=== PATIENT | female | born 1965 | race Native Hawaiian/Other Pacific Islander ===

== ENCOUNTER 2017-10-24 22:29 | Observation (INO) | payer OTHER ==
[2017-10-24] MEDS ORDERED: NITROGLYCERIN OINT 1 INCH/GM PACKET TOPICAL STA (22:50)
[2017-10-24] MEDS ORDERED: ASPIRIN 81 MG PO STA (22:50)
[2017-10-24 23:02] LABS: Basophils # (A) 0.1 k/uL (0-0.2); Basophils % (A) 1 %; Eosinophils # (A) 0.3 k/uL (0-0.7); Eosinophils % (A) 4 %; HCT 43.1 % (34.0-46.0); HGB 13.9 gm/dL (11.4-16.0); Lymphocytes # (A) 3.1 k/uL (1.0-4.8); Lymphocytes % (A) 39 %; MCH 27.9 pg (25.0-35.0); MCHC 32.2 g/dL (31.0-37.0); MCV 86.7 fL (80.0-100.0); Monocytes # (A) 0.3 k/uL (0-1.0); Monocytes % (A) 4 %; Neutrophils # (A) 4.1 k/uL (1.3-7.7); Neutrophils % (A) 51 %; Platelet Count 273 k/uL (150-450); RBC 4.97 m/uL (3.80-5.40); RDW 13.6 % (11.5-15.5)
--- NOTE | 2017-10-24 23:11 | XR ---
EXAMINATION TYPE: XR chest 2V DATE OF EXAM: 10/24/2017 COMPARISON: NONE HISTORY: Chest pain TECHNIQUE: Frontal and lateral views of the chest are obtained. FINDINGS: There is no heart failure nor confluent pneumonic infiltrate. There is suboptimal inspirat ion. Heart is probably enlarged. There are chest leads. Bony thorax is intact. IMPRESSION: Poor inspiration. No pulmonary consolidation or heart failure.
[2017-10-24 23:13] LABS: D-Dimer 0.45 mg/L FEU (<0.60)
[2017-10-24 23:15] LABS: ALT 79 U/L (9-52); AST 53 U/L (14-36); Albumin 3.8 g/dL (3.5-5.0); Alkaline Phosphatase 127 U/L (38-126); Anion Gap 10 mmol/L; Blood Urea Nitrogen 18 mg/dL (7-17); Calcium 9.3 mg/dL (8.4-10.2); Carbon Dioxide 25 mmol/L (22-30); Chloride 106 mmol/L (98-107); Glucose 209 mg/dL (74-99); Magnesium 1.8 mg/dL (1.6-2.3); Sodium 141 mmol/L (137-145); Total Bilirubin 0.3 mg/dL (0.2-1.3); Total Protein 7.1 g/dL (6.3-8.2)
[2017-10-24 23:17] LABS: INR 1.1 (<1.2); Prothrombin Time 10.3 sec (9.0-12.0)
--- NOTE | 2017-10-24 23:27 | ED ---
Chest Pain HPI - General Chief Complaint: Chest Pain Stated Complaint: Chest Pain Time Seen by Provider: 10/24/17 22:31 Source: patient, EMS Mode of arrival: EMS Limitations: no limitations - History of Present Illness Initial Comments: 17 years old female presented with a chest pain ongoing now for the last 3 hours also complaining about the pain get worse with the deep breaths denies any trauma denies any history of heart disease he does have a history of hypertension and diabetes and she is also quite short winded. His any fever or chills denies any purulent sputum production. Denies any abdominal pain no frequency urgency dysuria no symptoms of TIA or CVA - Related Data Home Medications Medication Instructions Recorded Confirmed Sertraline [Zoloft] 25 mg PO HS 10/24/17 10/24/17 metFORMIN HCL [Glucophage] 850 mg PO BID 10/24/17 10/24/17 Allergies Allergy/AdvReac Type Severity Reaction Status Date / Time codeine Allergy Swelling Verified 10/24/17 23:23 Penicillins Allergy Swelling Verified 10/24/17 23:23 Review of Systems ROS Statement: Those systems with pertinent positive or pertinent negative responses have been documented in the HPI. ROS Other: All systems not noted in ROS Statement are negative. EKG Findings - EKG Comments: EKG Findings:: EKG is normal sinus rhythm ventricular rate is 74 GA interval is 166 QRS duration is 4 QT/QTC 396/439 and 50 mL EKG does not reveal any ST elevation or ST depression Past Medical History Past Medical History: Diabetes Mellitus, Hypertension History of Any Multi-Drug Resistant Organisms: None Reported Additional Past Surgical History / Comment(s): left breast lumpectomy, Past Psychological History: No Psychological Hx Reported Smoking Status: Never smoker Past Alcohol Use History: None Reported Past Drug Use History: None Reported General Exam - General Exam Comments Initial Comments: General: The patient is awake and alert, in no distress, and does not appear acutely ill. Skin: Skin is warm and dry and no rashes or lesions are noted. Eye: Pupils are equal, round and reactive to light, extra-ocular movements are intact; there is normal conjunctiva bilaterally. Ears, nose, mouth and throat: There are moist mucous membranes and no oral lesions. Neck: The neck is supple, there is no tenderness or JVD. Cardiovascular: There is a regular rate and rhythm. No murmur, rub or gallop is appreciated. Respiratory: To auscultation bilateral, no wheezing no rhonchi no distress respiratory ramirez noticed Gastrointestinal: Soft, non-distended, non-tender abdomen without masses or organomegaly noted. There is no rebound or guarding present. Bowel sounds are unremarkable. Back: There is no tenderness to palpation in the midline. There is no obvious deformity. Musculoskeletal: Normal ROM, no tenderness, There is no pedal edema. There is no calf tenderness or swelling. No cords were appreciated. Neurological: CN II-XII intact, Cranial nerves III through XII are intact. There are no obvious motor or sensory deficits. Coordination appears grossly intact. Speech is normal. Psychiatric: Cooperative, appropriate mood & affect, normal judgment. Limitations: no limitations Course Vital Signs 10/24/17 22:31 Temperature 98.3 F Pulse Rate 78 Respiratory 20 Rate Blood Pressure 138/63 O2 Sat by Pulse 97 Oximetry Patient is reassessed at 2350, d-dimer is negative CBC, compressive metabolic panel are unremarkable except ALT 79 AST 53 and alk phosphatase is 127 chest x- ray is unremarkable troponin is still pending considering she is a 52 years old and she has a diabetes and hypertension I would recommend that she ought to be observed overnight for 3 sets of cardiac markers and cardiology consult him and this was discussed with the patient she agreed with this plan Disposition Clinical Impression: Chest pain, Dyspnea Disposition: ADMITTED IP TO THIS HOSP Condition: Good Referrals: Yady Dowd MD [Primary Care Provider] - 1-2 days
[2017-10-24 23:39] LABS: Creatine Kinase 671 U/L (30-135)
[2017-10-24] MEDS ORDERED: HEPARIN SOD,PORK IN 0.45% NACL 25,000 UNIT in 0.45% NACL 1 500ML.BAG IV SCH (23:45)
[2017-10-24 23:50] LABS: Troponin I <0.012 ng/mL (0.000-0.034)
[2017-10-24] MEDS ORDERED: HEPARIN SODIUM,PORCINE 5,000 UNIT/ML 1 ML VIAL IV ONE (23:58)
[2017-10-24] MEDS ORDERED: NITROGLYCERIN SL TABS 0.4 MG TAB SUBLINGUAL PRN (23:58)
[2017-10-25] MEDS ORDERED: HYDROmorphone 0.5 MG/0.5 ML SYRINGE IVP PRN (00:04)
[2017-10-25 00:07] LABS: Creatine Kinase MB 5.7 ng/mL (0.0-2.4)
[2017-10-25 00:56] VITALS: BMI 39.4
[2017-10-25] MEDS ORDERED: ACETAMINOPHEN TAB 325 MG TAB PO PRN (01:03)
[2017-10-25] MEDS ORDERED: metFORMIN 850 MG TAB PO SCH (07:30)
[2017-10-25 07:46] LABS: Cholesterol 191 mg/dL (<200); HDL Cholesterol 49 mg/dL (40-60); LDL Cholesterol,Calculated 103 mg/dL (0-99); Triglycerides 193 mg/dL (<150)
[2017-10-25 08:24] LABS: Creatine Kinase 530 U/L (30-135)
[2017-10-25 08:37] LABS: Troponin I <0.012 ng/mL (0.000-0.034)
[2017-10-25 08:42] LABS: Creatine Kinase MB 5.5 ng/mL (0.0-2.4)
--- NOTE | 2017-10-25 08:53 | P.CRDCN ---
History of Present Illness Consult date: 10/25/17 Chief complaint: Chest pain History of present illness: This is a 52-year-old female with history of hypertension and also non-insulin- dependent diabetes mellitus who is admitted now to the hospital with complaints of chest pain. The chest pain is located in the middle of the chest and sharp in nature and increases on deep breathing, coughing and also movements of the chest. Patient has significant tenderness in that area. She doesn't remember having any trauma to the chest. Her EKG showed sinus rhythm. Cardiac enzymes studies are negative. Her chest pains appear to be muscular skeletal. Patient could be treated with antiarrhythmic agents. We'll obtain an echocardiogram. If that is negative patient will be discharged home. Heparin to be discontinued. Patient could have outpatient stress test, Because of her risk factor profile. Past Medical History Past Medical History: Diabetes Mellitus, Hypertension History of Any Multi-Drug Resistant Organisms: None Reported Additional Past Surgical History / Comment(s): left breast lumpectomy, Past Psychological History: No Psychological Hx Reported Smoking Status: Never smoker Past Alcohol Use History: None Reported Past Drug Use History: None Reported - Past Family History Mother Family Medical History: Cancer Additional Family Medical History / Comment(s): skin CA Father Family Medical History: Myocardial Infarction ([place]) Medications and Allergies Home Medications Medication Instructions Recorded Confirmed Type Sertraline [Zoloft] 25 mg PO HS 10/24/17 10/25/17 History metFORMIN HCL [Glucophage] 850 mg PO BID 10/24/17 10/25/17 History Allergies Allergy/AdvReac Type Severity Reaction Status Date / Time codeine Allergy Anaphylaxis Verified 10/25/17 00:46 Penicillins Allergy Anaphylaxis Verified 10/25/17 00:46 Physical Exam Vitals: Vital Signs Temp Pulse Pulse Resp BP BP BP 10/25/17 08:00 97.7 F 67 16 122/73 10/25/17 03:33 18 10/25/17 01:54 18 10/25/17 01:50 98.1 F 77 18 123/63 10/25/17 00:01 76 18 134/66 10/24/17 22:31 98.3 F 78 20 138/63 Pulse Ox 10/25/17 08:00 97 10/25/17 03:33 10/25/17 01:54 10/25/17 01:50 96 10/25/17 00:01 95 10/24/17 22:31 97 Intake and Output 10/24/17 10/25/17 10/25/17 22:59 06:59 14:59 Other: Voiding Method Toilet # Voids 1 Weight 104.326 kg 104.3 kg GENERAL EXAM: Patient is alert and oriented and doesn't appear to be in any acute distress HEENT: Normocephalic. Normal reaction of pupils, equal size, normal range of extraocular motion. No erythema or exudates in the throat. NECK: No masses, no nuchal rigidity. CHEST: No chest wall deformity. LUNGS: Equal air entry with no crackles or wheeze. HEART: S1 and S2 normal with no audible mumurs or gallops. Regular rhythm, femorals equal on both sides.. ABDOMEN: No hepatosplenomegaly, normal bowel sounds, no guarding or rigidity. SKIN: No rashes CENTRAL NERVOUS SYSTEM: No focal deficits. EXTREMITIES: No cyanosis, clubbing or edema. Results 10/24/17 22:40 10/24/17 22:40 Cardiac Enzymes 10/24/17 10/24/17 10/25/17 Range/Units 22:40 22:40 06:31 AST 53 H (14-36) U/L CK-MB (CK-2) 5.7 H* 5.5 H* (0.0-2.4) ng/mL Troponin I <0.012 <0.012 (0.000-0.034) ng/mL Coagulation 10/24/17 10/25/17 Range/Units 22:40 06:31 PT 10.3 (9.0-12.0) sec APTT 24.0 35.3 H (22.0-30.0) sec Lipids 10/25/17 Range/Units 06:31 Triglycerides 193 H (<150) mg/dL Cholesterol 191 (<200) mg/dL HDL Cholesterol 49 (40-60) mg/dL CBC 10/24/17 Range/Units 22:40 WBC 8.0 (3.8-10.6) k/uL RBC 4.97 (3.80-5.40) m/uL Hgb 13.9 (11.4-16.0) gm/dL Hct 43.1 (34.0-46.0) % Plt Count 273 (150-450) k/uL Comprehensive Metabolic Panel 10/24/17 Range/Units 22:40 Sodium 141 (137-145) mmol/L Potassium 4.0 (3.5-5.1) mmol/L Chloride 106 (98-107) mmol/L Carbon Dioxide 25 (22-30) mmol/L BUN 18 H (7-17) mg/dL Creatinine 0.60 (0.52-1.04) mg/dL Glucose 209 H (74-99) mg/dL Calcium 9.3 (8.4-10.2) mg/dL AST 53 H (14-36) U/L ALT 79 H (9-52) U/L Alkaline Phosphatase 127 H (38-126) U/L Total Protein 7.1 (6.3-8.2) g/dL Albumin 3.8 (3.5-5.0) g/dL Current Medications Generic Name Dose Route Start Last Admin Trade Name Freq PRN Reason Stop Dose Admin Acetaminophen 650 mg 10/25/17 01:03 Tylenol Tab PO Q4HR PRN Fever and/ or MILD Pain Aspirin 325 mg 10/25/17 09:00 Aspirin PO DAILY SINTIA Hydromorphone HCl 0.5 mg 10/25/17 00:04 Dilaudid IVP Q1HR PRN Pain Heparin Sodium/Sodium Chloride 500 mls @ 20.03 mls/hr 10/24/17 23:45 00:24 25,000 unit/ Sodium Chloride IV 9.58 units/kg/hr .Q24H SINTIA 20 mls/hr Protocol Administration 9.6 UNITS/KG/HR Metformin HCl 850 mg 10/25/17 07:30 Glucophage PO AC-BID SINTIA Nitroglycerin 0.4 mg 10/24/17 23:58 Nitrostat SUBLINGUAL Q5M PRN Chest Pain Sertraline HCl 25 mg 10/25/17 21:00 Zoloft PO HS SINTIA Intake and Output 10/24/17 10/25/17 10/25/17 22:59 06:59 14:59 Other: Voiding Method Toilet # Voids 1 Weight 104.326 kg 104.3 kg 10/24/17 22:40 10/24/17 22:40 EKG Interpretations (text) Sinus rhythm Assessment and Plan (1) Hypertension Current Visit: Yes Status: Acute Code(s): I10 - ESSENTIAL (PRIMARY) HYPERTENSION SNOMED Code(s): 92993262 (2) Chest pain Current Visit: Yes Status: Acute Code(s): R07.9 - CHEST PAIN, UNSPECIFIED SNOMED Code(s): 02497409 (3) Non-insulin dependent type 2 diabetes mellitus Current Visit: Yes Status: Acute Code(s): E11.9 - TYPE 2 DIABETES MELLITUS WITHOUT COMPLICATIONS SNOMED Code(s): 12101285 Plan: Patient chest pains are atypical with negative enzymes and EKGs. We'll get an echocardiogram done. If that is negative patient could be discharged home. A stress test could be arranged as an outpatient. The patient could be treated with anti-inflammatory agents
[2017-10-25] MEDS ORDERED: ASPIRIN 325 MG TAB PO SCH (09:00)
[2017-10-25 10:47] LABS: Creatine Kinase 516 U/L (30-135)
[2017-10-25 11:00] LABS: Troponin I <0.012 ng/mL (0.000-0.034)
[2017-10-25 11:03] LABS: Creatine Kinase MB 4.8 ng/mL (0.0-2.4)
[2017-10-25 11:48] LABS: Glucose,Whole Blood 212 mg/dL (75-99)
[2017-10-25 12:05] VITALS: BP 143/68; PULSE 74; RESP 18; TEMP 98
[2017-10-25] MEDS ORDERED: traMADol 50 MG TAB PO PRN (12:09)
[2017-10-25] MEDS ORDERED: TEMAZEPAM 15 MG CAP PO PRN (12:10)
[2017-10-25] MEDS ORDERED: LORazepam 0.5 MG TAB PO PRN (12:10)
[2017-10-25] MEDS ORDERED: INSULIN ASPART 100 UNIT/ML 1 ML 10 ML VIAL SQ SCH (12:30)
[2017-10-25] MEDS ORDERED: PANTOPRAZOLE 40 MG/10 ML VIAL IVP SCH (12:30)
[2017-10-25] MEDS ORDERED: traMADol 50 MG TAB PO SCH (13:00)
[2017-10-25 13:15] LABS: Appearance,Urine Clear (Clear); Bilirubin,Urine Negative (Negative); Blood,Urine Negative (Negative); Color,Urine Light Yellow; Glucose,Urine (UA) 3+ (Negative); Ketones,Urine Negative (Negative); Leukocyte Esterase,Urine Negative (Negative); Nitrite,Urine Negative (Negative); PH, Urine 5.5 (5.0-8.0); Protein,Urine Negative (Negative); Specific Gravity,Urine 1.011 (1.001-1.035); Urobilinogen,Urine <2.0 mg/dL (<2.0)
[2017-10-25 13:28] LABS: Amphetamine Screen,Urine Not Detected (NotDetected); Barbiturate Screen,Urine Not Detected (NotDetected); Benzodiazepines Screen,Urine Not Detected (NotDetected); Cocaine Screen,Urine Not Detected (NotDetected); Methadone Screen, Urine Not Detected (NotDetected); Opiate Screen,Urine Not Detected (NotDetected); Oxycodone Screen, Urine Not Detected (NotDetected); Phencyclidine Screen,Urine Not Detected (NotDetected); Tricyclic Antidepressant,Urine Not Detected (NotDetected); Urn Cannabinoid Scrn Not Detected (NotDetected)
--- NOTE | 2017-10-25 14:23 | ECHOF ---
Referral Reason:Chest pain and cardiomyopathy MEASUREMENTS -------- HEIGHT: 162.6 cm WEIGHT: 103.9 kg BP: 122/73 IVSd: 1.4 cm (0.6 - 1.1) LVIDd: 4.0 cm (3.9 - 5.3) LVPWd: 1.6 cm (0.6 - 1.1) IVSs: 2.0 cm LVIDs: 1.8 cm LVPWs: 2.1 cm Ao Diam: 3.1 cm (2.0 - 3.7) AV Cusp: 1.9 cm (1.5 - 2.6) LA Diam: 3.6 cm (2.7 - 3.8) MV EXCURSION: 13.536 mm (> 18.000) MV EF SLOPE: 84 mm/s (70 - 150) EPSS: 0.3 cm MV E Govind: 0.84 m/s MV DecT: 278 ms MV A Govind: 0.88 m/s MV E/A Ratio: 0.96 RAP: 5.00 mmHg RVSP: 16.65 mmHg FINDINGS -------- Sinus rhythm. This was a technically good study. The left ventricular size is normal. There is moderate concentric left ventricular hypertrophy. O verall left ventricular systolic function is normal with, an EF between 55 - 60 %. The right ventricle is normal in size and function. The left atrium is normal in size. The right atrium is normal in size. The aortic valve is trileaflet, and appears structurally normal. No aortic stenosis or regurgitation. There is trace mitral regurgitation. Trace tricuspid regurgitation present. The right ventricular systolic pressure, as measured by Dopp ler, is 16.65mmHg. Pulmonic valve appears structurally normal. The aortic root, ascending aorta and aortic arch are normal. The pericardium is normal. CONCLUSIONS -------- 1. Sinus rhythm. 2. This was a technically good study. 3. The left ventricular size is normal. 4. There is moderate concentric left ventricular hypertrophy. 5. Overall left ventricular systolic function is normal with, an EF between 55 - 60 %. 6. The right ventricle is normal in size and function. 7. The left atrium is normal in size. 8. The right atrium is normal in size. 9. The aortic valve is trileaflet, and appears structurally normal. No aortic stenosis or regurgitati on. 10. There is trace mitral regurgitation. 11. Trace tricuspid regurgitation present. 12. The right ventricular systolic pressure, as measured by Doppler, is 16.65mmHg. 13. Pulmonic valve appears structurally normal. 14. The aortic root, ascending aorta and aortic arch are normal. 15. The pericardium is normal. MANAGER [employer]: Agatha Jarvis RDCS
--- NOTE | 2017-10-25 16:56 | HP ---
HISTORY AND PHYSICAL HISTORY AND PHYSICAL AND DISCHARGE SUMMARY: CHIEF COMPLAINT: Chest pain. HISTORY OF PRESENT ILLNESS: This 52-year-old woman with a past medical history of multiple medical problems including diabetes, hypertension, and left breast lumpectomy, being followed by Dr. Yady Dowd in the outpatient setting is complaining of chest pain. The patient had chest pain about 3 hours, which is getting worse with deep breath especially in the upper part of the chest and subsequently patient had numbness and some pain in the left arm and the patient came to [facility], admitted for further evaluation and treatment. The patient had persistent pain but; however, EKG is not showing any acute abnormality. The troponins are negative; however, the CK was mildly elevated. LFT is also elevated and the patient admitted for further evaluation and treatment. There is no history of fever, rigors. No headache, loss of consciousness, or seizures. PAST MEDICAL HISTORY: History of diabetes, hypertension, history of left breast lumpectomy. MEDICATIONS: Prior to admission include, home medications are: 1. Glucophage 850 mg p.o. b.i.d. 2. Zoloft 20 mg q.h.s. 3. Ultram 50 mg q.i.d. p.r.n. 4. Tylenol 650 q.4 p.r.n. ALLERGIES: CODEINE, PENICILLIN. FAMILY HISTORY: History of skin cancer in the family. SOCIAL HISTORY: No history of smoking. No history of alcohol intake. REVIEW OF SYSTEMS: ENT: No diminished vision. CARDIOVASCULAR SYSTEM: As mentioned earlier. RESPIRATORY: As mentioned earlier. GI: No nausea. : No dysuria. NERVOUS SYSTEM: No numbness or weakness. ALLERGY/IMMUNOLOGY: No asthma or hayfever. MUSCULOSKELETAL: As mentioned earlier. DERMATOLOGY: As mentioned earlier. ENDOCRINE: Diabetes mellitus. CONSTITUTIONAL: As mentioned earlier. PSYCHIATRY: As mentioned earlier. PHYSICAL EXAMINATION: Alert and oriented x3. Pulse 74, blood pressure 143/68, respiration 18, temperature 98 degrees, pulse ox 97% on room air. HEENT: Conjunctivae normal. Oral mucosa moist. Neck is no jugular venous distention. No lymph node enlargement. CARDIOVASCULAR SYSTEM: S1, S2 muffled, no S3, no S4. RESPIRATORY: Breath sounds diminished at the bases, no rhonchi, no crackles. ABDOMEN: Soft, nontender. No mass palpable. LEGS: No edema, no swelling. NERVOUS SYSTEM: Higher functions as mentioned earlier. Moves all 4 limbs. No focal motor or sensory deficit. LYMPHATICS: No lymph node enlargement in the neck or axillae. SKIN: No ulcer, rash, bleeding. LABS: CBC within normal limits. Glucose is 212 and CK 671. AST is 53 and ALT is 79. ASSESSMENT: 1. Chest pain, possibly pleuritic and/or musculoskeletal, myocardial infarction ruled out. 2. Increased CK with EKG. 3. Increased AST, ALT. 4. Possible upper respiratory infection and acute viral syndrome. 5. Diabetes mellitus. 6. Hypertension. 7. History of left breast lumpectomy. RECOMMENDATION: In this 52-year-old woman who presented with multiple medical issues. At this time I recommend to continue current management and continue symptomatic treatment. Patient is improved significantly. Cardiology has seen the patient and 2D echo is normal as per the verbal report. I would recommend following recommendations at the time of discharge. The patient will be discharged and follow up closely with primary physician and with Cardiology and outpatient stress test per Cardiology. MEDICATIONS WERE: 1. Tylenol 650 q.4 p.r.n. 2. Glucophage 850 mg p.o. b.i.d. 3. Zoloft 50 mg q.h.s. 4. Ultram 50 mg q.i.d. p.r.n. for pain. MMODL / IJN: [id number] /
[2017-10-25] MEDS ORDERED: SERTRALINE 25 MG TAB PO SCH (21:00)
[2017-10-25 21:20] LABS: Hemoglobin A1C 8.3 % (4.0-6.0)
[2017-10-26] MEDS ORDERED: PANTOPRAZOLE 40 MG TABLET PO SCH (07:30)
== END 2017-10-25 16:18 | disposition home or self-care (01) ==
LOC: EC 22:29 → 3SUR 10-25 00:03
PROVIDERS: ADMIT Hospitalist; ATTEND Hospitalist
DX: R07.89 Other chest pain (principal); R20.0 Anesthesia of skin; M79.602 Pain in left arm; R06.00 Dyspnea, unspecified; R74.8 Abnormal levels of other serum enzymes; R74.0 Nonspecific elevation of levels of transaminase and lactic acid dehydrogenase [LDH]; I10 Essential (primary) hypertension; E11.9 Type 2 diabetes mellitus without complications; Z79.84 Long term (current) use of oral hypoglycemic drugs; Z79.899 Other long term (current) drug therapy; Z88.5 Allergy status to narcotic agent; Z88.0 Allergy status to penicillin; Z80.8 Family history of malignant neoplasm of other organs or systems; Z82.49 Family history of ischemic heart disease and other diseases of the circulatory system; R60.0 Localized edema
CPT/HCPCS: 99285 ×2; 96365; 96366; 36415; 93005; 93306; 85379; 80061; 80053; 85652; 82550 ×2; 82553 ×2; 83735; 84484 ×2; 85025; 85610; 85730 ×2; 86140; 81003; 80306; 83036; 71046; G0378; J1644 ×2

== ENCOUNTER → 2017-11-12 | Outpatient (CLI) | payer OTHER ==
--- NOTE | 2017-11-13 07:22 | MM ---
Reason for exam: clinical finding. History: Benign excisional biopsy of the left breast. Physical Findings: Nurse Summary: 0.5cm nodule in the right breast at 5 o'clock (nurse quin). [facility] Diagnostic Mammo w CAD KASEY Bilateral CC, MLO, and XCCL view(s) were taken. There are scattered fibroglandular densities. Stable benign calcifications. There is no discrete abnormality including area of concern. These results were verbally communicated with the patient and result sheet given to the patient on 11/12/17. ASSESSMENT: Incomplete: need additional imaging evaluation, BI-RAD 0 RECOMMENDATION: Ultrasound of the right breast.
--- NOTE | 2017-11-13 07:23 | USB ---
Reason for exam: additional evaluation requested from abnormal screening. History: Benign excisional biopsy of the left breast. US Breast Limited RT Right breast ultrasound demonstrates a 0.5 x 0.6 x 0.4cm oval, mixed probable lymph node at 4 o'clock. These results were verbally communicated with the patient and result sheet given to the patient on 11/12/17. ASSESSMENT: Benign, BI-RAD 2 RECOMMENDATION: Routine screening mammogram of both breasts in 1 year. Manage patient on a clinical basis.
== END | disposition home or self-care (01) ==
LOC: RADMAMWWP 14:42
PROVIDERS: ATTEND Family Medicine
DX: N63.10 Unspecified lump in the right breast, unspecified quadrant (principal); R92.8 Other abnormal and inconclusive findings on diagnostic imaging of breast
CPT/HCPCS: 77066

== ENCOUNTER 2018-11-18 18:51 | Emergency (ER) | payer OTHER ==
[2018-11-18 19:04] VITALS: BP 158/90; PULSE 82; RESP 18; TEMP 98.2
[2018-11-18] MEDS ORDERED: KETOROLAC 60 MG/2 ML VIAL IM STA (19:18)
[2018-11-18] MEDS ORDERED: CYCLOBENZAPRINE 10MG STARTER 3 TAB BTL PO STA (19:18)
--- NOTE | 2018-11-18 19:22 | ED ---
General Adult HPI - General Chief complaint: Extremity Problem,Nontraumatic Stated complaint: Shoulder and neck pain Time Seen by Provider: 11/18/18 19:07 Source: patient Mode of arrival: ambulatory Limitations: no limitations - History of Present Illness Initial comments: 53-year-old feel past nuchal history of diabetes and hypertension presenting today for chief complaint of right shoulder pain. Patient states about 2 days ago she woke up with her right shoulder and pain, she states that increases with range of motion she states her range of motion is limited secondary to the pain. Patient states she does do a lot of lifting of her children who are done. As well as overhead range of motion. Patient denies any deficits in sensation, trauma to the shoulder. She states the pain does radiate towards the right neck she states her neck feels tense. Patient denies tenderness of the left side. Patient does state the pain increases or she turns her neck to the right. Patient states it feels like she slept on it wrong. When the pain persisted patient presented for evaluation. Patient denies any difficulty swelling, fever, chills, night sweats chest pain, dyspnea, dyspnea exertion, nausea, vomiting, indigestion, visual changes, headache, bowel pain, diarrhea, constipation, dizziness or any other complaints. Upon arrival patient BP raulito vated remaining VS within normal limits. - Related Data Home Medications Medication Instructions Recorded Confirmed Sertraline [Zoloft] 25 mg PO HS 10/24/17 10/25/17 metFORMIN HCL [Glucophage] 850 mg PO BID 10/24/17 10/25/17 Previous Rx's Medication Instructions Recorded Acetaminophen Tab [Tylenol] 650 mg PO Q4HR PRN tab 10/25/17 traMADol HCl [Ultram] 50 mg PO QID PRN #20 tab 10/25/17 Cyclobenzaprine [Flexeril] 10 mg PO TID PRN 7 Days #21 tab 11/18/18 Allergies Allergy/AdvReac Type Severity Reaction Status Date / Time codeine Allergy Anaphylaxis Verified 11/18/18 19:04 Penicillins Allergy Anaphylaxis Verified 11/18/18 19:04 Review of Systems ROS Statement: Those systems with pertinent positive or pertinent negative responses have been documented in the HPI. ROS Other: All systems not noted in ROS Statement are negative. Past Medical History Past Medical History: Diabetes Mellitus, Hypertension History of Any Multi-Drug Resistant Organisms: None Reported Additional Past Surgical History / Comment(s): left breast lumpectomy, Past Psychological History: No Psychological Hx Reported Smoking Status: Never smoker Past Alcohol Use History: None Reported Past Drug Use History: None Reported - Past Family History Mother Family Medical History: Cancer Additional Family Medical History / Comment(s): skin CA Father Family Medical History: Myocardial Infarction ([place]) General Exam - General Exam Comments Initial Comments: General: The patient is awake and alert, in no distress, and does not appear acutely ill. Eye: Pupils are equal, round and reactive to light, extra-ocular movements are intact. No nystagmus. There is normal conjunctiva bilaterally. No signs of icterus. Ears, nose, mouth and throat: There are moist mucous membranes and no oral lesions. Neck: The neck is supple, there is no tenderness or JVD. Cardiovascular: There is a regular rate and rhythm. No murmur, rub or gallop is appreciated. Respiratory: Lungs are clear to auscultation, respirations are non-labored, breath sounds are equal. No wheezes, stridor, rales, or rhonchi. Gastrointestinal: Soft, non-distended, non-tender abdomen without masses or organomegaly noted. There is no rebound or guarding present. No CVA tenderness. Bowel sounds are unremarkable. Musculoskeletal: Upon inspection of the shoulder there is no erythema. No soft tissue swelling. Patient refuses to fully range at the left shoulder secondary to pain. Patient is tender to palpation over the posterior shoulder. Normal ROM, no tenderness of the left shoulder. Strength 5/5 at the elbow and wrist bilaterally. Sensation intact of the upper extremities equal bilaterally including the badge region. Radial pulses equal bilaterally 2+. She is able to make the okay fingers crossed thumbs-up appose at the fingers and extend the wrist-radial median and ulnar nerves appear intact Neurological: A&O x 3. CN II-XII intact, There are no obvious motor or sensory deficits. Coordination appears grossly intact. Speech is normal. Skin: Skin is warm and dry and no rashes or lesions are noted. Psychiatric: Cooperative, appropriate mood & affect, normal judgment. Limitations: no limitations Course Vital Signs 11/18/18 19:00 Temperature 98.2 F Pulse Rate 82 Respiratory 18 Rate Blood Pressure 158/90 O2 Sat by Pulse 99 Oximetry Medical Decision Making - Medical Decision Making 53-year-old female presenting forearm right shoulder pain atraumatic. 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 Patient states it feels like muscle strain. Pain is reproducible to palpation. Patient has limited range of motion. There is no erythema or warmth to palpation of the joint. X-ray negative for acute osseous injury. Patient placed in sling for comfort. Patient started off the orthopedic surgery for further eval patient treatment return for worsening symptoms. All return parameters were discussed at length the patient who verbalizes understanding. Patient agreeable plan discharge which includes muscle relaxant for muscle tension palpable on exam as well as ibuprofen and Tylenol. I discussed the case attending provider Dr. Rivera who is agreeable with plan and discharge. Disposition Clinical Impression: Right shoulder strain, Neck muscle strain Disposition: HOME SELF-CARE Condition: Good Instructions (If sedation given, give patient instructions): Cervical Strain (ED), Shoulder Sprain (ED) Additional Instructions: Please use medication as discussed or driving drinking alcohol or working under the influence of Flexeril. Please follow-up with family doctor in the next 2 days, if symptoms persist please follow-up orthopedic surgery as discussed. Please return to emergency room if the symptoms increase or worsen or for any other concerns. Prescriptions: Cyclobenzaprine [Flexeril] 10 mg PO TID PRN 7 Days #21 tab PRN Reason: Muscle Spasm Is patient prescribed a controlled substance at d/c from ED?: No Referrals: Yady Dowd MD [Primary Care Provider] - 1-2 days Zhen Alamo MD [STAFF PHYSICIAN] - 1-2 days Time of Disposition: 19:22
--- NOTE | 2018-11-18 19:30 | XR ---
EXAMINATION TYPE: XR shoulder complete RT DATE OF EXAM: 11/18/2018 COMPARISON: NONE HISTORY: Shoulder pain TECHNIQUE: 3 views FINDINGS: There is some spurring of the humeral head and inferior glenoid labrum. I see no fracture n or dislocation. AC joint is intact. IMPRESSION: Mild degenerative hypertrophic changes. No fracture seen. Scapula appears intact.
== END 2018-11-18 19:57 | disposition home or self-care (01) ==
LOC: EC 18:51
DX: S46.911A Strain of unspecified muscle, fascia and tendon at shoulder and upper arm level, right arm, initial encounter (principal); S16.1XXA Strain of muscle, fascia and tendon at neck level, initial encounter; E11.9 Type 2 diabetes mellitus without complications; Z79.84 Long term (current) use of oral hypoglycemic drugs; Z79.899 Other long term (current) drug therapy; Z88.0 Allergy status to penicillin; Z88.5 Allergy status to narcotic agent; X50.0XXA Overexertion from strenuous movement or load, initial encounter
CPT/HCPCS: 73030; 99283; 96372; J1885

== ENCOUNTER 2020-07-24 16:49 | Emergency (ER) | payer OTHER ==
[2020-07-24 17:01] VITALS: RESP 18; TEMP 99.8
--- NOTE | 2020-07-24 18:31 | ED ---
General Adult HPI - General Chief complaint: Upper Respiratory Infection Stated complaint: cough Time Seen by Provider: 07/24/20 18:17 Source: patient Mode of arrival: ambulatory Limitations: no limitations - History of Present Illness Initial comments: 54-year-old female presents to the emergency department with three-day history of a strong non-productive congested cough that persists through the night, interrupts her sleep, and causes a headache. States she took NyQuil with no relief of symptoms. Patient denies fever, shortness of breath, or recent known sick contacts. Patient denies any recent rash, chills, chest pain, abdominal pain, nausea, vomiting, diarrhea, constipation, back pain, numbness, tingling, dizziness, weakness, hematuria, dysuria, urinary urgency, urinary frequency, visual changes, or any other complaints. Denies history of tobacco use. States she does have diabetes, but is out of her medication due to a recent move. - Related Data Home Medications Medication Instructions Recorded Confirmed Dm/Acetaminophen/Doxylamine [Vicks 30 ml PO HS PRN 07/24/20 07/24/20 Nyquil Cold-Flu Liquid] Previous Rx's Medication Instructions Recorded Albuterol Sulfate [Proair Hfa] 1 - 2 puff INHALATION Q6HR PRN #1 07/24/20 inhaler Azithromycin 250 mg PO DAILY 4 Days #4 tab 07/24/20 guaiFENesin-DM 600/30MG [Mucinex 1 each PO Q12HR #10 tab.er.12h 07/24/20 Dm] metFORMIN HCL [Glucophage] 500 mg PO BID #60 tab 07/24/20 predniSONE 50 mg PO DAILY #5 tablet 07/24/20 Allergies Allergy/AdvReac Type Severity Reaction Status Date / Time amoxicillin Allergy Anaphylaxis Verified 07/24/20 20:27 codeine Allergy Anaphylaxis Verified 07/24/20 20:27 Penicillins Allergy Anaphylaxis Verified 07/24/20 20:27 Review of Systems ROS Statement: Those systems with pertinent positive or pertinent negative responses have been documented in the HPI. ROS Other: All systems not noted in ROS Statement are negative. Past Medical History Past Medical History: Diabetes Mellitus, Hypertension History of Any Multi-Drug Resistant Organisms: None Reported Additional Past Surgical History / Comment(s): left breast lumpectomy, Past Psychological History: No Psychological Hx Reported Smoking Status: Never smoker Past Alcohol Use History: None Reported Past Drug Use History: None Reported - Past Family History Mother Family Medical History: Cancer Additional Family Medical History / Comment(s): skin CA Father Family Medical History: Myocardial Infarction ([place]) General Exam Limitations: no limitations (Well-developed, well-nourished female in no acute distress. Initial temperature 99.8F, pulse 94, respirations 18, blood pressure 146/81, pulse ox 97% on room air.) General appearance: alert, in no apparent distress ENT exam: Present: normal exam, mucous membranes moist Respiratory exam: Present: wheezes (Coarse expiratory wheezes noted throughout the right and left lung senior). Absent: respiratory distress, accessory muscle use Cardiovascular Exam: Present: regular rate, normal rhythm, normal heart sounds. Absent: systolic murmur, diastolic murmur, rubs, gallop, clicks GI/Abdominal exam: Present: soft, normal bowel sounds. Absent: distended, tenderness, guarding, rebound, rigid Neurological exam: Present: alert, oriented X3, CN II-XII intact Psychiatric exam: Present: normal affect, normal mood Skin exam: Present: warm, dry, intact, normal color. Absent: rash Course Vital Signs 07/24/20 07/24/20 07/24/20 16:59 18:09 21:24 Temperature 99.8 F H Pulse Rate 94 91 Respiratory 18 18 18 Rate Blood Pressure 146/81 146/91 O2 Sat by Pulse 97 98 Oximetry Medical Decision Making - Medical Decision Making 54-year-old female patient presents to the emergency department today for evaluation of a gesture. Physical examination did reveal coarse expiratory wheezing in the posterior lung senior. Vital signs were within normal ranges. Chest x-ray was negative. COVID-19 and influenza testing was negative. I did discuss findings and results with the patient. Her symptoms are consistent with bronchitis. We will treat with prednisone, azithromycin, Mucinex DM, and Pro Air inhaler. She is instructed to follow-up with her primary care physician for recheck in 1-2 days. She doesn't currently have one in the areas I did refill her metformin prescription and primary care has been recommended to her. Return parameters were discussed in detail. She verbalizes understanding and agrees with this plan. - Lab Data Lab Results 07/24/20 07/24/20 Range/Units 18:09 18:41 Coronavirus (PCR) Not Detected (Not Detectd) Influenza Type A RNA Not Detected (Not Detectd) Influenza Type B (PCR) Not Detected (Not Detectd) - Radiology Data Radiology results: report reviewed, image reviewed Two-view x-ray of the chest is obtained. Report was reviewed in its entirety. Impression by Dr. Jimenez shows no active cardiopulmonary disease. Normal heart. No change. Disposition Clinical Impression: Acute bronchitis Disposition: HOME SELF-CARE Condition: Good Instructions (If sedation given, give patient instructions): Acute Bronchitis (ED) Additional Instructions: Take medications as directed. Follow up with her primary care physician for recheck as soon as possible. Return to the emergency department immediately for any new, worsening, or concerning symptoms. Prescriptions: Azithromycin 250 mg PO DAILY 4 Days #4 tab metFORMIN HCL [Glucophage] 500 mg PO BID #60 tab guaiFENesin-DM 600/30MG [Mucinex Dm] 1 each PO Q12HR #10 tab.er.12h predniSONE 50 mg PO DAILY #5 tablet Albuterol Sulfate [Proair Hfa] 1 - 2 puff INHALATION Q6HR PRN #1 inhaler PRN Reason: Shortness Of Breath Is patient prescribed a controlled substance at d/c from ED?: No Referrals: Yady Dowd MD [Primary Care Provider] - 1-2 days Time of Disposition: 21:19
[2020-07-24] MEDS ORDERED: guaiFENesin-DM 600/30MG 1 EACH TAB.ER.12H PO STA (18:35)
[2020-07-24] MEDS ORDERED: IPRATROPIUM-ALBUTEROL 3 ML NEB INHALATION STA (18:36)
--- NOTE | 2020-07-24 19:19 | XR ---
EXAMINATION TYPE: XR chest 2V DATE OF EXAM: 07/24/2020 COMPARISON: October 24, 2017 HISTORY: Cough TECHNIQUE: 2 views FINDINGS: Heart and mediastinum are normal. Lungs are clear of infiltrate. Costophrenic angles are cl ear. There are no hilar masses. The bony thorax is intact. There is no pleural effusion. IMPRESSION: No active cardiopulmonary disease. Normal heart. No change.
[2020-07-24] MEDS ORDERED: AZITHROMYCIN 500 MG TAB PO STA (21:07)
[2020-07-24] MEDS ORDERED: predniSONE 50 MG TAB PO STA (21:07)
[2020-07-24 21:28] VITALS: BP 146/91; PULSE 91
== END 2020-07-24 21:28 | disposition home or self-care (01) ==
LOC: EC 16:49
DX: J20.9 Acute bronchitis, unspecified (principal); Z88.0 Allergy status to penicillin; Z88.5 Allergy status to narcotic agent; Z20.828 Contact with and (suspected) exposure to other viral communicable diseases
CPT/HCPCS: 87502; 87635; 71046; 99283; J7512

== ENCOUNTER 2021-07-29 15:21 | Observation (INO) | payer OTHER ==
[2021-07-29] MEDS ORDERED: DIPH,PERTUS(ACELL)TETVAC-LF 0.5 ML VIAL IM ONE (15:22)
[2021-07-29] MEDS ORDERED: CLINDAMYCIN 600 MG in DEXTROSE 5% IN WATER 50 ML IVPB STA ×2 (15:22)
[2021-07-29] MEDS: HYDROmorphone 1 MG/ML 1 ML SYRINGE IVP PRN ×2 (15:37→15:51)
[2021-07-29 15:42] LABS: Glucose,Whole Blood 293 mg/dL (75-99)
[2021-07-29] MEDS ORDERED: LORazepam 2 MG/ML INJ IV STA (15:52)
[2021-07-29] MEDS ORDERED: ONDANSETRON 4 MG/2 ML VIAL IVP STA (15:52)
[2021-07-29] MEDS ORDERED: HYDROmorphone 1 MG/ML 1 ML SYRINGE IVP STA (15:54)
--- NOTE | 2021-07-29 15:59 | CT ---
EXAMINATION TYPE: CT brain halimaine jhon con DATE OF EXAM: 07/29/2021 COMPARISON: None HISTORY: Large laceration to Right sided post trauma. CT DLP: 2656.7 mGycm Automated exposure control for dose reduction was used. TECHNIQUE: CT scan of the head and cervical spine are performed without contrast. FINDINGS: There is no acute intracranial hemorrhage, mass effect, or midline shift identified. The ventricles and sulci are within normal limits in size. The globes are intact and the visualized sin uses are clear. Subcutaneous gas and skin defect of the right temporoparietal scalp. Cervical spine is visualized in its entirety from C1 through upper thoracic levels and demonstrates s atisfactory alignment without evidence of acute fracture or dislocation. Prevertebral soft tissue ap pears within normal limits. The C1-C2 articulation is unremarkable. IMPRESSION: 1. There is no acute fracture or dislocation evident in the cervical spine. 2. No acute intracranial hemorrhage, mass effect, or midline shift is seen. 3. Subcutaneous gas and skin defect of the right temporoparietal scalp.
--- NOTE | 2021-07-29 16:02 | CT ---
EXAMINATION TYPE: CT facial bones wo con DATE OF EXAM: 07/29/2021 COMPARISON: None HISTORY: Large laceration to Right sided post trauma. CT DLP: 2656.7 mGycm Automated exposure control for dose reduction was used. TECHNIQUE: CT scan of the sinuses is performed without contrast, axial images are obtained, coronal r eformatted images are also reviewed. FINDINGS: The paranasal sinuses including the frontal, ethmoid, sphenoid, and maxillary sinuses bila terally are well-aerated without abnormal opacification. The ostiomeatal complex is patent bilateral ly on the coronal images. Soft tissue swelling/fat stranding of the left face/cheek. Visualized portion of mastoid air cells show no abnormal opacification. The globes are intact bilate rally. IMPRESSION: Mild soft tissue swelling/fat stranding of the left face/cheek. No acute osseous injury.
--- NOTE | 2021-07-29 16:04 | XR ---
EXAMINATION TYPE: XR chest 1V portable DATE OF EXAM: 07/29/2021 COMPARISON: Chest radiograph 07/24/2020 HISTORY: Trauma TECHNIQUE: Single frontal view of the chest is obtained. FINDINGS: There is no focal air space opacity, pleural effusion, or pneumothorax seen. The cardiac silhouette size is within normal limits. The osseous structures are intact. IMPRESSION: No acute process.
--- NOTE | 2021-07-29 16:05 | XR ---
EXAMINATION TYPE: XR pelvis AP view DATE OF EXAM: 07/29/2021 CLINICAL HISTORY: Trauma TECHNIQUE: A single AP view of the pelvis is obtained. COMPARISON: None. FINDINGS: There is no acute fracture/dislocation evident in the pelvis. The hip and sacroiliac join ts appear symmetric and unremarkable. The overlying soft tissue appears unremarkable. IMPRESSION: There is no acute fracture or dislocation in the pelvis.
[2021-07-29 16:12] LABS: ALT 58 U/L (4-34); AST 47 U/L (14-36); African American GFR (CKD) >90 (>60 ml/min/1.73 sqM); Albumin 3.8 g/dL (3.5-5.0); Alcohol <10 mg/dL; Alkaline Phosphatase 134 U/L (38-126); Anion Gap 11 mmol/L; Basophils # (A) 0.1 k/uL (0-0.2); Basophils % (A) 1 %; Blood Urea Nitrogen 13 mg/dL (7-17); Calcium 9.5 mg/dL (8.4-10.2); Carbon Dioxide 23 mmol/L (22-30); Chloride 102 mmol/L (98-107); Eosinophils # (A) 0.1 k/uL (0-0.7); Eosinophils % (A) 1 %; Glucose 316 mg/dL (74-99); HGB 14.9 gm/dL (11.4-16.0); Lymphocytes # (A) 3.1 k/uL (1.0-4.8); Lymphocytes % (A) 34 %; MCH 29.4 pg (25.0-35.0); MCHC 34.5 g/dL (31.0-37.0); MCV 85.1 fL (80.0-100.0); Mean Platelet Volume 7.8; Monocytes # (A) 0.3 k/uL (0-1.0); Monocytes % (A) 4 %; Neutrophils # (A) 5.3 k/uL (1.3-7.7); Neutrophils % (A) 58 %; Non-African American GFR(CKD) >90 (>60 ml/min/1.73 sqM); Platelet Count 290 k/uL (150-450); Potassium 3.9 mmol/L (3.5-5.1); RBC 5.06 m/uL (3.80-5.40); RDW 13.4 % (11.5-15.5); Sodium 136 mmol/L (137-145); Total Bilirubin 0.4 mg/dL (0.2-1.3); Total Protein 7.3 g/dL (6.3-8.2); WBC 9.1 k/uL (3.8-10.6)
[2021-07-29 16:21] LABS: Prothrombin Time 10.9 sec (9.0-12.0)
[2021-07-29 16:34] LABS: Partial Thromboplastin Time 21.3 sec (22.0-30.0)
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
[2021-07-29] MEDS ORDERED: KETOROLAC 15 MG/ML 1 ML VIAL IVP STA (17:19)
[2021-07-29] MEDS ORDERED: LIDOCAINE 1% INJ 10MG/ML (20 ML MDV) SQ ONE (17:20)
[2021-07-29 17:23] LABS: Amphetamine Screen,Urine Not Detected (NotDetected); Appearance,Urine Cloudy (Clear); Benzodiazepines Screen,Urine Not Detected (NotDetected); Bilirubin,Urine Negative (Negative); Blood,Urine Small (Negative); Cocaine Screen,Urine Not Detected (NotDetected); Color,Urine Yellow; Glucose,Urine (UA) 4+ (Negative); Ketones,Urine Trace (Negative); Leukocyte Esterase,Urine Negative (Negative); Mucus,Urine Rare /hpf; Nitrite,Urine Negative (Negative); Opiate Screen,Urine Detected (NotDetected); PH, Urine 5.5 (5.0-8.0); Phencyclidine Screen,Urine Not Detected (NotDetected); Protein,Urine 2+ (Negative); RBC,Urine 7 /hpf (0-5); Specific Gravity,Urine 1.043 (1.001-1.035); Squamous Epithelial Cell,Urine 10 /hpf (0-4); Urn Cannabinoid Scrn Not Detected (NotDetected); Urobilinogen,Urine <2.0 mg/dL (<2.0); WBC,Urine 11 /hpf (0-5)
[2021-07-29 17:24] LABS: Barbiturate Screen,Urine Not Detected (NotDetected); Methadone Screen, Urine Not Detected (NotDetected); Oxycodone Screen, Urine Not Detected (NotDetected); Tricyclic Antidepressant,Urine Not Detected (NotDetected)
[2021-07-29] MEDS ORDERED: NALOXONE 0.4 MG/ML 1 ML VIAL IV PRN (19:04)
[2021-07-29] MEDS ORDERED: ACETAMINOPHEN TAB 325 MG TAB PO PRN (19:04)
[2021-07-29] MEDS ORDERED: ONDANSETRON 4 MG/2 ML VIAL IVP PRN (19:04)
[2021-07-29] MEDS ORDERED: KETOROLAC 15 MG/ML 1 ML VIAL IVP PRN (19:04)
[2021-07-29] MEDS ORDERED: SODIUM CHLORIDE 0.9% 1,000 ML IV SCH (19:15)
[2021-07-29] MEDS: HYDROmorphone 0.5 MG/0.5 ML SYRINGE IVP PRN (19:28)
[2021-07-29 22:53] LABS: Glucose,Whole Blood 330 mg/dL (75-99)
[2021-07-30] MEDS: HYDROmorphone 0.5 MG/0.5 ML SYRINGE IVP PRN ×2 (01:28→08:21)
[2021-07-30 02:18] VITALS: TEMP 98.4
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
[2021-07-30] MEDS ORDERED: INSULIN DETEMIR (LEVEMIR) 100 UNIT/ML SYR SQ SCH (05:00)
[2021-07-30 05:12] LABS: Glucose,Whole Blood 320 mg/dL (75-99)
[2021-07-30 06:52] LABS: ALT 64 U/L (4-34); AST 63 U/L (14-36); African American GFR (CKD) >90 (>60 ml/min/1.73 sqM); Albumin 3.6 g/dL (3.5-5.0); Albumin/Globulin Ratio 1.1; Alkaline Phosphatase 108 U/L (38-126); Anion Gap 10 mmol/L; Blood Urea Nitrogen 12 mg/dL (7-17); Calcium 9.2 mg/dL (8.4-10.2); Carbon Dioxide 23 mmol/L (22-30); Chloride 102 mmol/L (98-107); Globulin 3.3 g/dL; Glucose 354 mg/dL (74-99); Non-African American GFR(CKD) >90 (>60 ml/min/1.73 sqM); Potassium 3.5 mmol/L (3.5-5.1); Sodium 135 mmol/L (137-145); Total Bilirubin 0.8 mg/dL (0.2-1.3); Total Protein 6.9 g/dL (6.3-8.2)
[2021-07-30 07:21] VITALS: BP 125/76; PULSE 84; RESP 18
[2021-07-30 07:33] LABS: Glucose,Whole Blood 349 mg/dL (75-99)
[2021-07-30] MEDS: INSULIN ASPART (NovoLOG) 100 UNIT/ML VIAL SQ SCH ×2 (08:20→12:58)
[2021-07-30] MEDS ORDERED: KETOROLAC 30 MG/ML 1 ML VIAL IVP PRN (08:21)
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
[2021-07-30 12:25] LABS: Glucose,Whole Blood 282 mg/dL (75-99)
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
== END 2021-07-30 13:53 | disposition home or self-care (01) ==
LOC: EC 15:21 → 6NMEDSUR 19:04
PROVIDERS: ADMIT Surgery; ATTEND Surgery
DX: S01.01XA Laceration without foreign body of scalp, initial encounter (principal); E11.65 Type 2 diabetes mellitus with hyperglycemia; S01.81XA Laceration without foreign body of other part of head, initial encounter; I10 Essential (primary) hypertension; E78.5 Hyperlipidemia, unspecified; R79.89 Other specified abnormal findings of blood chemistry; R06.02 Shortness of breath; R07.9 Chest pain, unspecified; R20.0 Anesthesia of skin; R20.2 Paresthesia of skin; V03.10XA Pedestrian on foot injured in collision with car, pick-up truck or van in traffic accident, initial encounter; Z23 Encounter for immunization; E66.9 Obesity, unspecified; Z68.33 Body mass index [BMI] 33.0-33.9, adult; Z20.822 Contact with and (suspected) exposure to COVID-19; Z88.0 Allergy status to penicillin; Z88.5 Allergy status to narcotic agent; Z90.710 Acquired absence of both cervix and uterus; Z98.891 History of uterine scar from previous surgery; Z98.890 Other specified postprocedural states; Z80.8 Family history of malignant neoplasm of other organs or systems; Z82.49 Family history of ischemic heart disease and other diseases of the circulatory system
CPT/HCPCS: 12013; 12004; 90471; 96374; 96375; 99291; 36415; 93005; 86900; 86901; 80053 ×2; 84484; 85025; 85610; 85730; 86850; 81001; 80306; 80320; 83036; 87635; 72170; 71045; 72125; 70486; 70450; 90715; G0378 ×2; J2060; J2405 ×2; J2001; J1885 ×2; J1170 ×3

== ENCOUNTER 2022-07-18 17:47 | Emergency (ER) | payer OTHER ==
[2022-07-18 19:34] VITALS: BP 136/91; PULSE 86; RESP 18; TEMP 98.6
--- NOTE | 2022-07-18 19:46 | ED ---
Lower Extremity Injury HPI - General Chief Complaint: Extremity Injury, Lower Stated Complaint: Fall,Lt Leg Injury Time Seen by Provider: 07/18/22 19:33 Source: patient, RN notes reviewed Mode of arrival: wheelchair Limitations: no limitations - History of Present Illness Initial Comments: 56-year-old female who states she tripped over her daughter's cat in and fell down 3 steps in her basement earlier today. The patient complains of left ankle pain medial and lateral no other injury however no foot pain no pain proximal to the ankle. No fevers chills nausea vomiting sweats no loss consciousness no head neck or back injury. MD Complaint: ankle injury - Related Data Home Medications Medication Instructions Recorded Confirmed No Known Home Medications 07/29/21 07/29/21 Allergies Allergy/AdvReac Type Severity Reaction Status Date / Time amoxicillin Allergy Anaphylaxis Verified 07/18/22 19:34 Penicillins Allergy Anaphylaxis Verified 07/18/22 19:34 codeine AdvReac Nausea & Verified 07/18/22 19:34 Vomiting Review of Systems ROS Statement: Those systems with pertinent positive or pertinent negative responses have been documented in the HPI. ROS Other: All systems not noted in ROS Statement are negative. Past Medical History Past Medical History: Diabetes Mellitus, Hypertension History of Any Multi-Drug Resistant Organisms: None Reported Past Surgical History: Section, Hysterectomy Additional Past Surgical History / Comment(s): left breast lumpectomy, Past Psychological History: No Psychological Hx Reported Smoking Status: Never smoker Past Alcohol Use History: None Reported Past Drug Use History: None Reported - Past Family History Mother Family Medical History: Cancer Additional Family Medical History / Comment(s): skin [place] Father Family Medical History: Myocardial Infarction ([place]) General Exam - General Exam Comments Initial Comments: This is a well-developed well-nourished awake alert oriented 6 female Limitations: no limitations General appearance: alert, anxious Eye exam: Present: normal appearance, PERRL, EOMI. Absent: scleral icterus, conjunctival injection, periorbital swelling ENT exam: Present: normal exam, mucous membranes moist Neck exam: Present: full ROM Respiratory exam: Present: normal lung sounds bilaterally. Absent: respiratory distress, wheezes, rales, rhonchi, stridor Cardiovascular Exam: Present: regular rate, normal rhythm, normal heart sounds. Absent: systolic murmur, diastolic murmur, rubs, gallop, clicks Extremities exam: Present: full ROM, tenderness, normal capillary refill, other (Is palpation on the left lateral and medial malleoli with edema and some ecchymosis seen bilaterally. No definite deformity seen. No sensorimotor or vascular deficit) Back exam: Present: normal inspection, full ROM. Absent: tenderness Neurological exam: Present: alert, oriented X3, CN II-XII intact Psychiatric exam: Present: normal affect, normal mood Skin exam: Present: warm, dry, other (Slight abrasion seen to the medial aspect of the left ankle no evidence of any need for repair.) Course Vital Signs 07/18/22 19:32 Temperature 98.6 F Pulse Rate 86 Respiratory 18 Rate Blood Pressure 136/91 O2 Sat by Pulse 94 L Oximetry Medical Decision Making - Medical Decision Making I did discuss findings with the patient. She will be placed in a stirrup splint. She demonstrates evidence of left ankle sprain as well as the evident avulsion fracture. She is to have limited weightbearing orthopedic follow-up elevation Tylenol or Motrin for pain. She is in agreement with this. - Radiology Data Radiology results: report reviewed (I did evaluate the x-ray of the left ankle there appears be evidence of an avulsion fracture of the left distal fibula.), image reviewed Disposition Clinical Impression: Closed left ankle fracture, Left ankle sprain Disposition: HOME SELF-CARE Condition: Good Instructions (If sedation given, give patient instructions): Ankle Sprain (ED), Ankle Fracture (ED) Additional Instructions: Ice 24-48 hours when necessary no more than 20 minutes elevation of the left leg above the heart 3-4 times a day for about 20 minutes. Is patient prescribed a controlled substance at d/c from ED?: No Referrals: Nonstaff,Physician [REFERRING] - 1-2 days Zhen Alamo MD [STAFF PHYSICIAN] - 1-2 days Decision Date: 07/18/22 Decision Time: 21:08
--- NOTE | 2022-07-18 20:44 | XR ---
EXAMINATION TYPE: XR ankle complete LT DATE OF EXAM: 07/18/2022 COMPARISON: NONE HISTORY: Pain TECHNIQUE: 3 views FINDINGS: There is soft tissue swelling over the lateral malleolus. Ankle mortise is anatomic. There is plantar calcaneal spurring. IMPRESSION: Lateral soft tissue swelling. Calcaneal spurring. No fracture.
== END 2022-07-18 22:14 | disposition home or self-care (01) ==
LOC: EC 17:47
DX: S82.92XA Unspecified fracture of left lower leg, initial encounter for closed fracture (principal); S93.402A Sprain of unspecified ligament of left ankle, initial encounter; E11.9 Type 2 diabetes mellitus without complications; I10 Essential (primary) hypertension; Z88.0 Allergy status to penicillin; Z88.5 Allergy status to narcotic agent; W10.9XXA Fall (on) (from) unspecified stairs and steps, initial encounter
CPT/HCPCS: 99283

== ENCOUNTER 2022-09-22 20:44 | Emergency (ER) | payer OTHER ==
[2022-09-22 20:57] VITALS: TEMP 98.2
[2022-09-22] MEDS ORDERED: KETOROLAC 15 MG/ML 1 ML VIAL IM STA (21:11)
--- NOTE | 2022-09-22 21:12 | ED ---
General Adult HPI - General Chief complaint: Dental/Oral Stated complaint: Tooth Ache Time Seen by Provider: 09/22/22 20:58 Source: patient, RN notes reviewed Mode of arrival: ambulatory Limitations: no limitations - History of Present Illness Initial comments: 56-year-old female presents to the emergency department complaining of dental pain 1 day. She is complaining of tooth on the lower part of her mouth. She reports that she woke up yesterday and it was hurting and has progressively gotten worse. She describes the pain as sharp and constant. She denies any trauma. He tried Tylenol and Motrin without relief. She does not have a dentist to follow up with. - Related Data Home Medications Medication Instructions Recorded Confirmed No Known Home Medications 07/29/21 07/29/21 Allergies Allergy/AdvReac Type Severity Reaction Status Date / Time amoxicillin Allergy Anaphylaxis Verified 09/22/22 20:54 Penicillins Allergy Anaphylaxis Verified 09/22/22 20:54 codeine AdvReac Nausea & Verified 09/22/22 20:54 Vomiting Review of Systems ROS Statement: Those systems with pertinent positive or pertinent negative responses have been documented in the HPI. ROS Other: All systems not noted in ROS Statement are negative. Past Medical History Past Medical History: Diabetes Mellitus, Hypertension History of Any Multi-Drug Resistant Organisms: None Reported Past Surgical History: Section, Hysterectomy Additional Past Surgical History / Comment(s): left breast lumpectomy, Past Psychological History: No Psychological Hx Reported Smoking Status: Never smoker Past Alcohol Use History: None Reported Past Drug Use History: None Reported - Past Family History Mother Family Medical History: Cancer Additional Family Medical History / Comment(s): skin CA Father Family Medical History: Myocardial Infarction ([place]) General Exam Limitations: no limitations General appearance: alert, in no apparent distress Head exam: Present: atraumatic, normocephalic, normal inspection Eye exam: Present: normal appearance, PERRL, EOMI. Absent: scleral icterus, conjunctival injection, periorbital swelling ENT exam: Present: normal exam, mucous membranes moist Neck exam: Present: normal inspection. Absent: tenderness, meningismus, lymphadenopathy Respiratory exam: Present: normal lung sounds bilaterally. Absent: respiratory distress, wheezes, rales, rhonchi, stridor Cardiovascular Exam: Present: regular rate, normal rhythm, normal heart sounds. Absent: systolic murmur, diastolic murmur, rubs, gallop, clicks GI/Abdominal exam: Present: soft, normal bowel sounds. Absent: distended, tenderness, guarding, rebound, rigid Extremities exam: Present: normal inspection, full ROM, normal capillary refill. Absent: tenderness, pedal edema, joint swelling, calf tenderness Back exam: Present: normal inspection Neurological exam: Present: alert, oriented X3, CN II-XII intact Psychiatric exam: Present: normal affect, normal mood Skin exam: Present: warm, dry, intact, normal color. Absent: rash Course Vital Signs 09/22/22 20:55 Temperature 98.2 F Pulse Rate 100 Respiratory 18 Rate Blood Pressure 156/93 O2 Sat by Pulse 98 Oximetry Medical Decision Making - Medical Decision Making Was pt. sent in by a medical professional or institution ([employer], ASSOCIATE PROFESSOR OF MEDICINE, urgent care, hospital, or custodial...) When possible be specific @ -[No] Did you speak to anyone other than the patient for history (EMS, parent, family, police, friend...)? What history was obtained from this source @ -[No] Did you review nursing and triage notes (agree or disagree)? Why? @ -[I reviewed and agree with nursing and triage notes] Were old charts reviewed (outside hosp., previous admission, EMS record, old EKG, old radiological studies, urgent care reports/EKG's, custodial records)? Report findings @ -[No old charts were reviewed] Differential Diagnosis (chest pain, altered mental status, abdominal pain women, abdominal pain men, vaginal bleeding, weakness, fever, dyspnea, syncope, headache, dizziness, GI bleed, back pain, seizure, CVA, palpatations, mental health)? @ -[not applicable] EKG interpreted by me (3pts min.). @ -[As above] X-rays interpreted by me (1pt min.). @ -[None done] CT interpreted by me (1pt min.). @ -[None done] U/S interpreted by me (1pt. min.). @ -[None done] What testing was considered but not performed or refused? (CT, X-rays, U/S, labs)? Why? @ -[None] What meds were considered but not given or refused? Why? @ -[None] Did you discuss the management of the patient with other professionals (professionals i.e. , PA, ASSOCIATE PROFESSOR OF MEDICINE, lab, RT, psych nurse, renal social worker, central processing tech, teacher, supply requirements officer, wrapper caser)? Give summary @ -[No] Was smoking cessation discussed for >3mins.? @ -[No] Was critical care preformed (if so, how long)? @ -[No] Were there social determinants of health that impacted care today? How? (Homelessness, low income, unemployed, alcoholism, drug addiction, transportation, low edu. Level, literacy, decrease access to med. care, prison, rehab)? @ -[No] Was there de-escalation of care discussed even if they declined (Discuss DNR or withdrawal of care, Hospice)? DNR status @ -[No] What co-morbidities impacted this encounter? (DM, HTN, Smoking, COPD, CAD, Cancer, CVA, ARF, Chemo, Hep., AIDS, mental health diagnosis, sleep apnea, morbid obesity)? @ -[None] Was patient admitted / discharged? Hospital course, mention meds given and route, prescriptions, significant lab abnormalities, going to OR and other pertinent info. @ -56-year-old female presenting to the emergency department for dental pain. Physical exam is essentially unremarkable. Patient was given Toradol IM with symptomatic relief on the emergency department. SHe was given EC starter pack Motrin 600. I discussed in detail the importance with follow up with a dentist. Patient verbalized understanding and all questions were addressed. Patient was discharged in stable condition discussed the case with Dr. Burris [facility] who agrees with plan for discharge. Undiagnosed new problem with uncertain prognosis? @ -[No] Drug Therapy requiring intensive monitoring for toxicity (Heparin, Nitro, Insulin, Cardizem)? @ -[No] Were any procedures done? @ -[No] Diagnosis/symptom? @ -dental pain Acute, or Chronic, or Acute on Chronic? @ -acute Uncomplicated (without systemic symptoms) or Complicated (systemic symptoms)? @ -uncomplicated Side effects of treatment? @ -[No] Exacerbation, Progression, or Severe Exacerbation? @ -[No] Poses a threat to life or bodily function? How? (Chest pain, [place], [place], pneumonia, PE, COPD, DKA, ARF, appy, cholecystitis, CVA, Diverticulitis, Homicidal, Suicidal, threat to staff... and all critical care pts) @ low likelihood Disposition Clinical Impression: Toothache Disposition: HOME SELF-CARE Condition: Stable Instructions (If sedation given, give patient instructions): Toothache (ED) Is patient prescribed a controlled substance at d/c from ED?: No Referrals: Mike Leonard MD [Primary Care Provider] - 1-2 days Time of Disposition: 22:08
[2022-09-22] MEDS ORDERED: IBUPROFEN 600 MG STARTER PACK 4 TAB BTL PO STA (22:07)
[2022-09-22 22:26] VITALS: BP 149/98; PULSE 98; RESP 16
== END 2022-09-22 22:26 | disposition home or self-care (01) ==
LOC: EC 20:44
DX: K08.89 Other specified disorders of teeth and supporting structures (principal); E11.9 Type 2 diabetes mellitus without complications; I10 Essential (primary) hypertension; Z88.0 Allergy status to penicillin; Z88.5 Allergy status to narcotic agent
CPT/HCPCS: 99283; 96372; J1885